=== PATIENT | male | born 1955 | race Caucasian/White ===

== ENCOUNTER → 2022-03-09 | Day surgery (SDC) | payer BC, OTHER ==
[~2022-03-09] VITALS: Ht 170.2 cm; Wt 74.8 kg
[~2022-03-09] MED LIST: AMIO200T33 PO; CARV25TA55 PO; ENAL5TAB10 PO; EPINEPHrine HCL 1 MG/1 ML AMP ONE; ETAN50IN10 SC; HYDROmorphone HCL 2 MG/ML VL/or syr IV PRN; LABETALOL HCL 5 MG/ML ML 20ML VIAL IV ONE; LIDOCAINE 2% (LOCAL ANESTH.) PF 5ml SDV ONE; MEPERIDINE HCL (25 MG/ML) 1ML VIAL IM ONE; MEPERIDINE HCL (25 MG/ML) 1ML VIAL IV ONE; MIDAZOLAM HCL 2MG/2ML 2ml VIAL (1mg/ml) ONE; ONDANSETRON HCL 4 MG/2 ML VIAL IV PRN; ONDANSETRON HCL 4 MG/2 ML VIAL ONE; PROPOFOL 10 MG/ML 20 ML IV ONE; RIV15T PO; ROCURONIUM 10MG/ML 10ML VIAL IV ONE; ROPIVACAINE 0.5% (5MG/ML) 20ML AMPULE IJ ONE; SIMV-13 PO; TAMS0.4C36 PO; ceFAZolin 1GM/50ML 100 ML IV ONE; fentaNYL CITRATE 100 MCG/2 ML VL ONE
[2022-03-09 17:30] VITALS: BP 151/84
== END | disposition home or self-care (01) ==
LOC: SUR 10:05
PROVIDERS: ATTEND Orthopaedic Surgery
DX: M75.121 Complete rotator cuff tear or rupture of right shoulder, not specified as traumatic (principal); S43.431A Superior glenoid labrum lesion of right shoulder, initial encounter; M75.41 Impingement syndrome of right shoulder; M75.51 Bursitis of right shoulder; X58.XXXA Exposure to other specified factors, initial encounter; Y93.89 Activity, other specified; Y92.89 Other specified places as the place of occurrence of the external cause; Y99.8 Other external cause status; I10 Essential (primary) hypertension; I48.91 Unspecified atrial fibrillation; Z79.899 Other long term (current) drug therapy; Z20.822 Contact with and (suspected) exposure to COVID-19
CPT/HCPCS: 29827; 29828; C1713; J0171; J0690; J2001; J2250; J2405; J2704; J2795; J3010; U0003; A4565